=== PATIENT | male | born 1975 | race Caucasian/White ===

== ENCOUNTER 2021-04-22 07:48 | Emergency (ER) | payer MEDICAID, OTHER ==
[~2021-04-22] VITALS: Ht 172.7 cm; Wt 88.6 kg
[2021-04-22] MEDS ORDERED: ipratropium/albuterol 3ml nebule NEB ONE (08:05)
--- NOTE | 2021-04-22 08:10 | NUR ---
PATIENT EXHIBITS HIGH ANXIETY IN TRIAGE, CALMING MEASURES USED. RECENT HOSPITALIZATION FOR COVID. PATIENT MOVED TO ROOM 12, ER MD/TERRITORY ACCOUNT REPRESENTATIVE NOTIFIED.
[2021-04-22] MEDS ORDERED: dexamethasone sod phosphate 10mg/ml inj IV STA (08:20)
--- NOTE | 2021-04-22 08:39 | NUR ---
Order for SVN tx on this pt however pt has a hx of covid positive x2 weeks ago. Spoke with RN Viviane about needing an Albuterol MDI for this pt. Also spoke with Pharmacist Nighat, she stated she would speak with MD and get the order converted to MDI for pt. Will administer MDI when it arrives from pharmacy.
[2021-04-22 08:48] LABS: BASOPHILS # (AUTO) 0.1 X10'3 (0-0.2); BASOPHILS % (AUTO) 1.1 % (0-1); EOSINOPHILS # (AUTO) 0.9 X10'3 (0-0.9); EOSINOPHILS % (AUTO) 10.7 % (0-6); HEMATOCRIT 46.6 % (42.0-52.0); HEMOGLOBIN 15.7 g/dl (14.0-17.9); LYMPHOCYTES # (AUTO) 2.4 X10'3 (1.1-4.8); MEAN CORPUSCULAR HEMOGLOBIN 26.6 PG (27.0-31.0); MEAN CORPUSCULAR HGB CONC 33.7 g/dL (33.0-36.5); MEAN CORPUSCULAR VOLUME 78.9 FL (78-98); MEAN PLATELET VOLUME 8.6 FL (7.4-10.4); MONOCYTES # (AUTO) 0.6 X10'3 (0-0.9); MONOCYTES % (AUTO) 7.3 % (2-12); NEUTROPHILS # (AUTO) 4.7 X10'3 (1.8-7.7); NEUTROPHILS % (AUTO) 53.9 % (42-75); PLATELET COUNT 356 X10'3 (140-440); RED CELL DISTRIBUTION WIDTH 15.5 % (11.5-14.5); WHITE BLOOD COUNT 8.7 X10'3 (4.5-11.0)
[2021-04-22] MEDS ORDERED: albuterol 60 PUFF/8GM Inhaler IH PRN (09:15)
[2021-04-22 09:16] LABS: ALANINE AMINOTRANSFERASE 42 U/L (12-78); ALBUMIN 3.4 G/DL (3.4-5.0); ALBUMIN/GLOBULIN RATIO 0.9 (1.1-1.5); ALKALINE PHOSPHATASE 109 IU/L (46-116); ANION GAP 9 (8-16); ASPARTATE AMINO TRANSFERASE 19 U/L (10-37); BILIRUBIN,TOTAL 0.2 MG/DL (0.1-1.0); BLOOD UREA NITROGEN 10 MG/DL (7-18); BUN/CREATININE RATIO 12.3 (5.4-32.0); CHLORIDE 107 MMOL/L (99-107); CREATININE 0.81 MG/DL (0.60-1.10); GLUCOSE 153 MG/DL (70-104); POTASSIUM 4.3 MMOL/L (3.5-5.1); SODIUM 144 MMOL/L (135-145); TOTAL CARBON DIOXIDE 28.5 MMOL/L (24-32); TOTAL PROTEIN 7.2 G/DL (6.4-8.2); eGFR > 90 ML/MIN
[2021-04-22] MEDS ORDERED: BUDE180A INH ×2 (10:24→12:24)
[2021-04-22] MEDS ORDERED: PRED20TA PO ×2 (10:24→12:24)
[2021-04-22] MEDS ORDERED: ALB0.5UD IH ×2 (10:24→12:24)
[2021-04-22] MEDS ORDERED: AZIT-63 PO ×2 (10:41→12:24)
[2021-04-22 11:07] VITALS: BP 142/107
== END 2021-04-22 11:12 | disposition home or self-care (01) ==
LOC: ER 07:48
DX: J45.909 Unspecified asthma, uncomplicated (principal); Z20.822 Contact with and (suspected) exposure to COVID-19; E11.9 Type 2 diabetes mellitus without complications; I10 Essential (primary) hypertension; Z87.01 Personal history of pneumonia (recurrent); Z87.898 Personal history of other specified conditions; Z79.2 Long term (current) use of antibiotics
CPT/HCPCS: 36415; 71045; 80053; 83880; 84145; 84484; 85025; 87635; 93005; 94640; 96374; 99285; C9803; J1100; 94760